=== PATIENT | male | born 1985 | race African-American/Black ===

== ENCOUNTER 2019-03-26 02:37 | Emergency (ER) | payer MEDICAID ==
[~2019-03-26] VITALS: Ht 188 cm; Wt 113.4 kg
[2019-03-26 02:52] VITALS: BP 178/103
--- NOTE | 2019-03-26 02:53 | NUR ---
ED Nurse Note: Patient walked in to ER c/o spider bites. Per patient he bit him ehen he was sleeping. AAO x4, VSS at this time, skin is dry warm to touch.
--- NOTE | 2019-03-26 02:56 | NUR ---
ED Nurse Note: Per ER MD its not a spider bites, its just abscess. ER MD by bed side removing pus.
[2019-03-26] MEDS ORDERED: Bacitracin Oint UD TOPIC ONE ×2 (03:00)
--- NOTE | 2019-03-26 03:03 | Emergency Room Report ---
History of Present Illness General Chief Complaint: Skin Rash/Abscess Source: Patient Present Illness HPI This is a 33-year-old male with no past mental history. He presents with chief complaint of a spider bite. He has an abscess to his left chin area. This has been ongoing for one day. Is getting worse. He found a spider on the window outside. He thought it could be due to spider that bit him even though he did not see anything. No fever chills but no nausea no vomiting but no drainage. Allergies: Coded Allergies: No Known Allergies (Unverified , 03/26/19) Patient History Past Medical History: see triage record, old chart reviewed Past Surgical History: none Pertinent Family History: none Social History: Denies: smoking Immunizations: other Reviewed Nursing Documentation: PMH: Agreed; PSxH: Agreed Nursing Documentation-PMH Past Medical History: No Stated History Review of Systems Eye: Denies: eye pain, blurred vision ENT: Denies: ear pain, nose congestion, throat swelling Respiratory: Denies: cough, shortness of breath Cardiovascular: Denies: chest pain, palpitations Gastrointestinal: Denies: abdominal pain, diarrhea, nausea, vomiting Musculoskeletal: Denies: back pain, joint pain Skin: Denies: rash Neurological: Denies: headache, numbness Endocrine: Denies: increased thirst, increased urine Hematologic/Lymphatic: Denies: easy bruising All Other Systems: negative except mentioned in HPI Physical Exam Vital Signs Date Time Temp Pulse Resp B/P (MAP) Pulse Ox O2 Delivery O2 Flow Rate FiO2 03/26/19 02:40 98.2 101 18 178/103 95 Room Air vitals with high blood pressure Sp02 EP Interpretation: reviewed, normal General Appearance: well appearing, no apparent distress, alert Head: normocephalic, atraumatic Eyes: bilateral eye PERRL, bilateral eye EOMI ENT: hearing grossly normal, normal pharynx, other - Left chin: Is an indurated area of 3 cm with central ulceration. Mild erythema Neck: full range of motion, supple, no meningismus Respiratory: chest non-tender, lungs clear, normal breath sounds Cardiovascular #1: regular rate, rhythm, no murmur Gastrointestinal: normal bowel sounds, non tender, no mass, no organomegaly, no bruit, non-distended Musculoskeletal: back normal, gait/station normal, normal range of motion Psychiatric: mood/affect normal Skin: warm/dry Procedures Incision and Drainage Incision and Drainage : Consent: Verbal Site: chin Blade Size: 11 I & D Procedure: betadine prep, sterile drapes applied, sterile dressing applied Wound Location: face Anesthesia: 1% Lidocaine Volume Anesthetic (ccs): 3 Patient Tolerated: Well Complications: None Medical Decision Making Diagnostic Impression: Primary Impression: Abscess of chin Additional Impression: Hypertension Qualified Codes: I10 - Essential (primary) hypertension ER Course Patient presents with an abscess to his chin. Most likely MRSA. Unlikely from a spider bite. No deep infection. No necrotizing fasciitis. We'll discharge home. Last Vital Signs Date Time Temp Pulse Resp B/P (MAP) Pulse Ox O2 Delivery O2 Flow Rate FiO2 03/26/19 02:52 98.2 18 178/103 95 Room Air 03/26/19 02:40 101 Status: improved Disposition: HOME, SELF-CARE Scripts Amlodipine Besylate (Norvasc) 10 Mg Tablet 10 MG ORAL DAILY, #30 TAB Prov: Prince Cordoba MD 03/26/19 Hydrocodone/Acetaminophen 5-325* (HYDROCODONE/ACETAMINOPHEN 5-325*) 1 Each Tablet 1 TAB ORAL Q6H PRN for For Pain, #10 TAB 0 Refills Prov: Prince Cordoba MD 03/26/19 Trimethoprim/Sulfamethoxazole 160/800* (BACTRIM DS TABLET*) 1 Each Tablet 1 TAB ORAL Q12H, #14 TAB 0 Refills Prov: Prince Cordoba MD 03/26/19 Patient Instructions: Abscess Additional Instructions: Keep wound clean. Clean with hydrogen peroxide and then apply antibiotic ointment. Follow-up with your Dr. in 2 to 3 days for recheck. Follow-up your doctor for recheck on your blood pressure. Return if symptom worsen. Prince Cordoba MD March 26, 2019 03:03
[2019-03-26] MEDS ORDERED: HYDROCODON-ACE1 EA15 ORAL (03:06)
[2019-03-26] MEDS ORDERED: BACTRIM DS TAB1 EAC1 ORAL (03:06)
[2019-03-26] MEDS ORDERED: NORVASC10 MG ORAL (03:08)
[2019-03-26] MEDS ORDERED: HYDROcodone/Acetamin 5/325 tab ORAL ONE (03:15)
--- NOTE | 2019-03-26 03:30 | NUR ---
ED Nurse Note: Pt cleared by health care Provider for discharge. DC instructions/prescription was given and explained to pt and verbalized understanding of teachings. All medical deviecs such as ID band removed. Pt is AAO x4, ambulatory and left with all personal belongings.
[2019-03-26 03:35] VITALS: BP 150/87
== END 2019-03-26 03:35 | disposition home or self-care (01) ==
LOC: EMR 02:50
DX: L02.01 Cutaneous abscess of face (principal); I10 Essential (primary) hypertension
CPT/HCPCS: 10060; 99283; Z7502